=== PATIENT | female | born 1965 | race Caucasian/White ===

== ENCOUNTER → 2019-12-02 14:02 | Outpatient (CLI) | payer MEDICAID, SELFPAY ==
--- NOTE | 2019-12-02 14:05 | US_ITS ---
APPROVED REPORT Exam Type: Lower Extremity Segmental Pressures Driller And Reamer: Sabina Nina RVT Indications Rest Pain: Bilaterally Numbness/Tingling Current Smoker Pt has neuropathy, bilateral cold feet Risk Factors Hypertension Current Smoker Pressures/Indices Right Indices Left Indices Brachial 100.00 mmHg Brachial 99.00 mmHg Low Thigh 108.00 mmHg 1.08 Low Thigh 111.00 mmHg 1.11 Calf 95.00 mmHg 0.95 Calf 93.00 mmHg 0.93 Ankle(PT) 127.00 mmHg 1.27 Ankle(PT) 121.00 mmHg 1.21 Ankle(DP) 90.00 mmHg 0.90 Ankle(DP) 106.00 mmHg 1.06 Digit 70.00 mmHg 0.70 Digit 67.00 mmHg 0.67 Findings RT SPENCER:1.27 LT SPENCER:1.21 RT TBI:0.70 LT TBI:0.67 NORMAL PULSES BILATERAL WAVEFORMS APPEAR NORMAL-PT HAS NEUROPATHY AND HAS NERVE TWITCHING DIFFCULT TO EVALUATE Conclusion No evidence significant arterial disease throughout the right and left lower extremities as evidenced by normal resting PVR waveforms and normal resting indices. Electronically signed by : Dawson Gruber MD 12/02/2019 16:19:55
== END ==
PROVIDERS: Visit Provider Podiatrist
DX: R09.89 Other specified symptoms and signs involving the circulatory and respiratory systems (principal); R68.89 Other general symptoms and signs; G62.9 Polyneuropathy, unspecified; M79.662 Pain in left lower leg; M79.661 Pain in right lower leg; M79.672 Pain in left foot; M79.671 Pain in right foot
CPT/HCPCS: 93923